=== PATIENT | male | born 1970 | race Caucasian/White ===

== ENCOUNTER 2021-12-25 09:52 | Outpatient (REF) | payer BC, SELFPAY ==
[2021-12-27 11:11] LABS: COVID-19 RT-PCR UVMMC Result Negative (Negative)
== END 2021-12-25 09:53 | disposition home or self-care (01) ==
LOC: LBN 09:52
PROVIDERS: PCP Nurse Practitioner; Visit Provider Family Medicine
DX: Z20.822 Contact with and (suspected) exposure to COVID-19 (principal); J06.9 Acute upper respiratory infection, unspecified
CPT/HCPCS: U0003

== ENCOUNTER 2022-05-24 01:24 | Outpatient (CLI) | payer BC, SELFPAY ==
[2022-05-24 13:59] LABS: Calculated LDL 150 mg/dL (<100); Cholesterol 220 mg/dL (<200); HDL Cholesterol 49 mg/dL (40-60); Triglyceride 109 mg/dL (<150)
== END 2022-05-24 01:25 | disposition home or self-care (01) ==
LOC: LOS 01:24
PROVIDERS: PCP Nurse Practitioner; Visit Provider Nurse Practitioner Family
DX: Z13.1 Encounter for screening for diabetes mellitus (principal); Z13.220 Encounter for screening for lipoid disorders
CPT/HCPCS: 36415; 80061; 83036

== ENCOUNTER 2023-02-14 10:10 | Day surgery (SDC) | payer BC, SELFPAY ==
--- NOTE | 2023-02-13 19:35 | PDOC.DSDIS_ITS ---
Date of service: 02/14/23 Time of Service: 12:24 Discharge Plan Disposition Patient Disposition: Home Condition: Good Discharge Details Reason For Visit: colon scope Attending Provider: Allie Frost Primary Care Provider: Carly Ardon Home Meds and New Rx's Prescriptions: Discontinued bisacodyl [Dulcolax (bisacodyl)] 5 mg tablet,delayed release (DR/EC) 5 mg PO ONCE Qty: 4 0RF Rx Instructions: Take per colonoscopy instructions provided by ordering providers office polyethylene glycol 3350 17 gram/dose powder 17 g PO ONCE Qty: 238 0RF Rx Instructions: Take per colonoscopy instructions provided by ordering providers office Discharge Instructions Additional Instructions: DSU Colonoscopy Post- Op Instructions Instructions for Everyone who is given Anesthesia: For your safety, please do the following for the next twenty-four (24) hours: *Do Not operate a motor vehicle (car, truck, motorcycle, etc.) *Do Not drink alcoholic beverages or use any recreational drugs for the first 24 hours or while taking pain medications. The medications in your body may have a reaction that can be dangerous. *Do Not make any important decisions or sign any important papers. Findings: Minor diverticula. Make sure you are moving your bowels on a regular basis and avoid straining to move your bowels. If you find you are having more issues with constipation, I recommend starting a fiber supplement such as Metamucil, daily. Follow up: Repeat colonoscopy in 10 years time. 1. No lifting over 20 pounds or strenuous activity for the first 24 hours after your procedure. After 24 hours there are no restrictions on your activity but you may feel fatigued for a few days. 2. After you arrive home you may have a light meal and return to your normal diet as you can tolerate it without feeling sick to your stomach. 3. You may have a bloated, gaseous feeling in your belly (abdomen) after a colonoscopy. Passing gas and belching will help. Walking or lying down on your left side with your knees flexed may relieve the discomfort. Call the office at [phone] (Office) or [phone] (Hospital) right away i f you notice any of the following: a.Vomiting of blood or ?coffee ground stools?. b.Rectal bleeding 1Tbsp, blood clots or continuous bleeding. c.Severe belly (abdominal) pain. d.A hard distended belly (abdomen) and an inability to pass gas. 4. Please don?t expect to have a normal BM (bowel movement) for 2-3 days after your procedure. 5. If there are questions regarding the findings of your procedure, please contact your doctor 6. If you are unable to contact your doctor with a problem, contact the hospital at [phone]. 7. Continue all your regular medications unless directed otherwise. I understand the above instructions and have no questions. Signature of Patient or Adult Escort Name of Responsible Adult Escort Signature of Nurse Date/Time m Activity:: See above Diet:: See above Discharge Orders Discharge Orders: Discharge Order (Routine); Ordered 02/14/23 Ordered By: Allie Frost DS: Diagnosis Discharge Diagnosis (1) Screening for malignant neoplasm of colon performed: Status: Acute Asessment and Plan: Post [place] Note/Eval The patient is seen and examined after their colonoscopy.? The patient has been able to pass gas.? They are not having abdominal pain.? They have been able to tolerate liquids and a snack.? They do not have any nausea or vomiting.? They are not having any chest pain or shortness of breath.??? They are not having any rectal bleeding. Their vital signs have been stable-see nursing notes. We discussed findings during their colonoscopy, and any biopsies that were done/polyps that were removed. The patient will be sent a letter with any biopsy results, and when to repeat the colonoscopy.-see discharge instructions. Patient was given explicit instructions to follow-up regarding colonoscopy-refer to discharge instructions.? We reviewed resumption of medications. Patient verbalized understanding and discharged in stable and satisfactory condition- See nursing notes. (2) Diverticula of colon: Status: Acute
--- NOTE | 2023-02-13 19:39 | W.COLOREPORT ---
Date of service: 02/14/23 Time of Service: 12:15 Colonoscopy Report Date of procedure: 02/14/23 Pre-op diagnosis general: CRC screening Post-op diagnosis procedure note: other (minor diverticula ) Surgeon: Allie Frost Anesthesia Type: General:No Airway Estimated blood loss (mL): 0 Complications: None Disposition: same day Prep: Miralax/Dulcolax Retraction Time: 15 Procedure Description: After informed consent was obtained the patient was taken to the procedure room and placed in a left decubitous position. Monitors were applied and a time out was done. The patients name, date of , procedure, allergies to medications and metal in their body was reviewed. The patient was then sedated. Once sedated and comfortable a rectal exam was done. External exam was normal. Internal exam revealed a normal sphincter tone and no palpable masses. The scope was then introduced and retrofelexed. very small internal hemorrhoidal tag, no redisual hemorrhoids were identified. The scope was then advanced to the cecum without difficulty. The TI and appendiceal orifice were identified. The prep was BBPS 2 in all segments for total of 6. The scope was then slowly retracted over 15 minutes back into the rectum. there are no polyps or AVMs identified. He has minor diverticula confined to the sigmoid colon. There is no signs of active bleeding or infection. The scope was removed and the patient was woken up and taken back to Same day surgery in stable condition. The patient tolerated the procedure well and there were no immediate complications. Follow up: The patient should follow up in 10 years unless they develop changes in bowel habits or other new gastrointestinal complaints.
--- NOTE | 2023-02-14 06:48 | ANES.PREOP_ITS ---
General Info Date of Service Date Performed: 02/14/23 Height: 6 ft 3 in Weight: 108.409 kg Body Mass Index (BMI): 29.8 Surgical Procedure: Operation Date: 02/14/23 10:50 Proposed Procedure Side Surgeon machelle Frost, Meds Allergies and Home Medications Allergies Allergy/AdvReac Type Severity Reaction Status Date / Time oxycodone [From Percocet] Allergy vertigo, Verified 02/14/23 10:27 spinning sensation house dust AdvReac Verified 02/14/23 10:27 Current Visit Medications: Current Medications Generic Name Dose Route Start Last Admin Trade Name Freq PRN Reason Stop Dose Admin Hyoscyamine Sulfate 0.125 mg 02/14/23 07:52 Hyoscyamine 0.125 Mg Sl/Oral/Chew SL 03/16/23 07:51 DIRECTED PRN Ringer's Solution 1,000 mls @ 80 mls/hr 02/14/23 06:00 IV 03/15/23 23:59 [facility] IV Miscellaneous Supplies 1 each 02/14/23 06:00 Iv Access IV 03/15/23 23:59 DIRECTED ERMIAS Ondansetron HCl 4 mg 02/14/23 07:52 Ondansetron 4 Mg/2 Ml Vial IVP 03/16/23 07:51 Q4H PRN PRN Nausea / Vomiting Sodium Chloride 0 ml 02/14/23 06:00 Normal Saline Flush 10 Ml Syr IV 03/15/23 23:59 PRN PRN Sodium Chloride 0 ml 02/14/23 06:00 Normal Saline 10 Ml Vial IJ 03/15/23 23:59 DIRECTED PRN Sterile Water 0 ml 02/14/23 06:00 Water,Injection,Sterile 10 Ml Vial IJ 03/15/23 23:59 DIRECTED PRN PFSH Active Problems Active Problems: Problem Status Onset Code Screening for malignant neoplasm of colon performed Z12.11 Left hamstring muscle strain S76.312A Right hamstring muscle strain S76.311A COVID-19 U07.1 Cervicalgia M54.2 Medical History Medical History Fracture of finger of left hand Male circumcision 1997 Surgical History Surgical History S/P ORIF (open reduction internal fixation) fracture 10/1998 Tobacco Smoking/Tobacco Use Status: Former Tobacco Use Smokeless tobacco user: chewing tobacco Passive smoking exposure: Yes Alcohol Alcohol Intake: current Alcohol intake frequency: a few times a month Alcohol type: beer and hard liquor Substance Use Substance use: Never Substance use type: does not use Vital Signs and Lab Results Vital Signs Most Recent Vital Signs in EMR: Temp Pulse Resp BP Pulse Ox 36.4 C L 72 16 119/89 97 02/14/23 10:24 02/14/23 10:24 02/14/23 10:24 02/14/23 10:24 02/14/23 10:24 Lab Results Blood Type / Crossmatch: No Data to Display Complete Blood Count: No Data to Display Complete Metabolic Panel: No Data to Display Liver Function Panel: No Data to Display Coagulation Panel: No Data to Display Cardiac Panel: No Data to Display Arterial Blood Gas: No Data to Display Venous Blood Gas: No Data to Display Pancreas Panel: No Data to Display Thyroid Panel: No Data to Display Infectious Disease: No Data to Display Blood Cultures: No Data to Display Toxicology Panel: No Data to Display Anesthesia Assessment and Plan Anesthesia History Personal History: No History of Anesthesia Complications Family History: No Family History of Anesthesia Complications Exercise Tolerance Exercise Tolerance: Metabolic Equivalents>4 Cardiac & Pulmonary Exam Cardiac Exam: Normal S1/S2 Heart Sounds Pulmonary Exam: Clear Bilateral Breath Sounds Implantable Cardiac Device Does patient have a Pacemaker or an ICD?: No Airway Exam Known Difficult Airway: No Mallampati Class: 3 Mouth Opening: Normal (> 3cm) Thyromental Distance: Greater than 3 cm Neck Range of Motion: Full ROM Neck Circumference: Normal Teeth Condition: Normal Dentition ASA Classification ASA Score: ASA 2 Emergency Case?: No NPO Status NPO Status: NPO Clears >2 hours, Solids >8 hours Anesthesia Plan Resuscitation Status: Full Code Anesthesia Technique: General Anesthesia Airway Planned: Natural Airway Monitors Used: Standard Monitors Preoperative Comments:: 52 yo male for colo. Sig PMHx: cervicalgia, former smoker, occ EtOH.
[2023-02-14 10:24] VITALS: BP 119/89; PULSE 72; RESP 16; TEMP 36.4; O2SAT 97
[2023-02-14 10:29] VITALS: BMI 29.8
[2023-02-14] MEDS: Lactated Ringers 1,000 ML 80 ML IV (10:49)
[2023-02-14 11:41] VITALS: BP 119/80; PULSE 78; RESP 17; TEMP 36.6; O2SAT 95
--- NOTE | 2023-02-14 12:08 | W.ANESPOSTOP ---
Postoperative Evaluation Date, Time and Location Date Performed: 02/14/23 Time Performed: 12:08 Patient Location: Day Surgery Unit Vital Signs Most Recent Imported Vital Signs: Most Recent Vital Signs Temp Pulse Resp BP Pulse Ox 36.6 C 78 17 119/80 95 02/14/23 11:41 02/14/23 11:41 02/14/23 11:41 02/14/23 11:41 02/14/23 11:41 Pain Score Most Recent Pain Score: Most Recent Pain Score Pain Level 0 02/14/23 11:41 Assessment Mental Status: Awake (Alert & Oriented to Patient Baseline) Airway and Respiratory Function: Patent airway with normal (patient baseline) respiratory exam Cardiovascular Function: Hemodynamically Stable Hydration Status: Adequately Hydrated Nausea & Vomiting: No Nausea or Vomiting Pain: Pt. Denies Any Pain Peripheral Nerve Block: Patient did not receive a nerve block
[2023-02-14 12:11] VITALS: BP 121/74; PULSE 63; RESP 17; TEMP 36.6; O2SAT 97
== END 2023-02-14 12:35 | disposition home or self-care (01) ==
PROVIDERS: PCP Nurse Practitioner Family; Visit Provider Surgery
PROC: 0DJD8ZZ Inspection of Lower Intestinal Tract, Via Natural or Artificial Opening Endoscopic (ICD-10-PCS; CPT 45378; principal; 2023-02-14 10:45)
DX: Z12.11 Encounter for screening for malignant neoplasm of colon (principal); K57.30 Diverticulosis of large intestine without perforation or abscess without bleeding
CPT/HCPCS: 45378

== ENCOUNTER 2024-03-05 09:18 | Outpatient (CLI) | payer BC, SELFPAY ==
[2024-03-05 12:44] LABS: Hemoglobin A1C 5.6 % (<5.7)
[2024-03-05 12:50] LABS: Calculated LDL 145 mg/dL (<100); Cholesterol 223 mg/dL (<200); HDL Cholesterol 57 mg/dL (40-60); Triglyceride 109 mg/dL (<150)
== END 2024-03-05 09:19 | disposition home or self-care (01) ==
LOC: LOS 09:18
PROVIDERS: PCP Nurse Practitioner Family; Referring Provider Nurse Practitioner Family; Visit Provider Nurse Practitioner Family
DX: Z13.1 Encounter for screening for diabetes mellitus (principal); Z13.220 Encounter for screening for lipoid disorders; Z23 Encounter for immunization; Z00.00 Encounter for general adult medical examination without abnormal findings
CPT/HCPCS: 36415; 80061; 83036